=== PATIENT | male | born 1990 | race Hispanic/Latino ===

== ENCOUNTER 2021-09-20 09:40 | Inpatient (IN) | payer SELFPAY ==
[2021-09-20] MEDS ORDERED: Morphine 4 MG/ML VIAL ONE ×3 (10:00→15:08)
[2021-09-20] MEDS ORDERED: Iopamidol 370 76% 100 ML VIAL ONE (10:22)
[2021-09-20 10:44] LABS: #Eosinphils 0.2 thou/uL (0.0-0.7); #Lymphocytes 1.5 thou/uL (1.20-3.40); #Monocytes 0.4 thou/uL (0.11-0.59); #Neutrophils 6.9 thou/uL (1.40-6.50); %Basophils 0.5 % (0.0-1.0); %Eosinophils 2.3 % (0.0-10.0); %Lymphocytes 16.4 % (21.0-51.0); %Monocytes 4.6 % (0.0-10.0); %Neutrophils 76.2 % (42.0-75.0); Hemoglobin 16.6 g/dL (14.0-18.0); Mean Corpuscular HGB CONC 34.7 g/dL (32.0-36.0); Mean Corpuscular Hemoglobin 31.6 pg (27.0-31.0); Mean Platelet Volume 8.3 fL (7.4-10.4); Platelet Count 212 thou/uL (130-400); RBC Distribution Width 11.6 % (11.5-14.5); Red Blood Cell (RBC) Count 5.24 mill/uL (4.70-6.10); White Blood Cell (WBC) Count 9.1 thou/uL (4.8-10.8)
[2021-09-20 11:06] LABS: ALT (SGPT) 75 U/L (8-55); AST (SGOT) 50 U/L (5-34); Albumin 4.5 g/dL (3.5-5.0); Alkaline Phosphatase 100 U/L (40-110); Anion Gap 10 mmol/L (10-20); BUN (Urea Nitrogen) 8 mg/dL (8.9-20.6); Calc. Creatinine Clearance 0 mL/min (70-130); Calcium 9.1 mg/dL (7.8-10.44); Carbon Dioxide 24 mmol/L (22-29); Chloride 106 mmol/L (98-107); Globulin 2.9 g/dL (2.4-3.5); Glucose 95 mg/dL (70-105); Potassium 3.1 mmol/L (3.5-5.1); Protein, Total 7.4 g/dL (6.0-8.3); Sodium 137 mmol/L (136-145)
[2021-09-20] MEDS ORDERED: Boostrix 0.5 ML (Tdap) VIAL ONE (12:52)
[2021-09-20] MEDS ORDERED: Ondansetron PF 4 MG/2 ML Vial IVP PRN (14:11)
[2021-09-20] MEDS ORDERED: Dextrose 50% Abboject 50 ML SYRINGE SLOW IVP PRN (14:11)
[2021-09-20] MEDS ORDERED: Dextrose 5% in Water 1,000 ML IV PRN (14:11)
[2021-09-20] MEDS ORDERED: Morphine 4 MG/ML VIAL SLOW IVP PRN (14:11)
[2021-09-20] MEDS ORDERED: traMADol HCl 50 MG TAB PO PRN (14:14)
[2021-09-20] MEDS ORDERED: Sodium Chloride 0.9% 1,000 ML IV SCH (14:15)
[2021-09-20 14:57] LABS: Lactic Acid 1.9 mmol/L (0.5-2.2)
[2021-09-20 15:01] LABS: Alcohol Less than 10 mg/dL (Less than 10); Phosphorus 2.4 mg/dL (2.3-4.7)
[2021-09-20 15:53] LABS: SARS-CoV-2 NAA Rapid Test DETECTED (NotDetected)
[2021-09-20] MEDS ORDERED: Potassium Phosphate 30 MMOL in Sodium Chloride 0.9% 250 ML 250 ML IVPB SCH (17:30)
[2021-09-20] MEDS: Acetaminophen 500 MG TAB PO SCH ×2 (17:54→21:46)
[2021-09-20] MEDS: Gabapentin 300 MG CAP PO SCH ×2 (17:55→21:44)
[2021-09-20 19:34] VITALS: BMI 30.2
[2021-09-20] MEDS: Famotidine 20 MG TAB PO SCH (21:43)
[2021-09-20] MEDS: Ibuprofen 200 MG TAB PO SCH (21:47)
[2021-09-20] MEDS: Senokot S 8.6-50 MG TAB PO SCH (21:48)
[2021-09-21 00:53] LABS: Bacteria/HPF None Seen HPF (None Seen); Bilirubin Negative (Negative); Blood, Urine Negative (Negative); Clarity Clear (Clear); Glucose, Urine (Dipstick) Normal (Negative); Ketone, Urine Negative (Negative); Leukocyte Negative Leu/uL (Negative); Nitrite Negative (Negative); Protein, Urine (Dipstick) Negative (Neg-Trace); RBC/HPF 0-3 HPF (0-3); Specific Gravity, Urine 1.012 (1.002-1.036); Squamous Epithelial None Seen HPF (0-3); Urine Culture Reflex No No; Urobilinogen Normal mg/dL (Less than 2); WBC/HPF 0-3 HPF (0-3); pH, Urine 5.5 (5.0-9.0)
[2021-09-21 00:54] LABS: Amphetamine Not Detected (NotDetected); Barbiturates Screen Not Detected (NotDetected); Benzodiazepine Screen Not Detected (NotDetected); Cocaine Metabolite Screen Not Detected (NotDetected); Methadone Not Detected (NotDetected); Methamphetamine Not Detected (NotDetected); Opiate Screen Detected (NotDetected); Oxycodone Screen Not Detected (NotDetected); Phencyclidine (PCP) Not Detected (NotDetected); THC/Cannabinoid Screen Not Detected (NotDetected); Tricyclic Screen Not Detected (NotDetected)
[2021-09-21] MEDS: traMADol HCl 50 MG TAB PO PRN (03:40)
[2021-09-21] MEDS: Acetaminophen 500 MG TAB PO SCH ×4 (03:42→21:50)
[2021-09-21 04:44] LABS: #Eosinphils 0.2 thou/uL (0.0-0.7); #Lymphocytes 1.7 thou/uL (1.20-3.40); #Monocytes 0.6 thou/uL (0.11-0.59); #Neutrophils 4.2 thou/uL (1.40-6.50); %Basophils 0.4 % (0.0-1.0); %Eosinophils 3.6 % (0.0-10.0); %Lymphocytes 25.3 % (21.0-51.0); %Monocytes 8.4 % (0.0-10.0); %Neutrophils 62.3 % (42.0-75.0); Hemoglobin 14.8 g/dL (14.0-18.0); Mean Corpuscular HGB CONC 34.5 g/dL (32.0-36.0); Mean Corpuscular Hemoglobin 31.2 pg (27.0-31.0); Mean Corpuscular Volume 90.5 fL (78.0-98.0); Mean Platelet Volume 8.5 fL (7.4-10.4); Platelet Count 188 thou/uL (130-400); RBC Distribution Width 11.6 % (11.5-14.5); Red Blood Cell (RBC) Count 4.73 mill/uL (4.70-6.10); White Blood Cell (WBC) Count 6.7 thou/uL (4.8-10.8)
[2021-09-21 05:46] LABS: Anion Gap 10 mmol/L (10-20); BUN (Urea Nitrogen) 8 mg/dL (8.9-20.6); Calc. Creatinine Clearance 208 mL/min (70-130); Calcium 8.9 mg/dL (7.8-10.44); Carbon Dioxide 27 mmol/L (22-29); Chloride 104 mmol/L (98-107); Glucose 99 mg/dL (70-105); Magnesium 2.2 mg/dL (1.6-2.6); Phosphorus 3.5 mg/dL (2.3-4.7); Potassium 3.7 mmol/L (3.5-5.1); Sodium 137 mmol/L (136-145)
[2021-09-21] MEDS: Ibuprofen 200 MG TAB PO SCH ×3 (06:51→21:50)
[2021-09-21] MEDS: Gabapentin 300 MG CAP PO SCH ×3 (08:21→21:49)
[2021-09-21] MEDS: Senokot S 8.6-50 MG TAB PO SCH ×2 (08:21→21:51)
[2021-09-21] MEDS: Famotidine 20 MG TAB PO SCH ×2 (08:22→21:51)
[2021-09-21] MEDS ORDERED: PHOS-NAK 1 PKT PACK PO SCH (08:30)
[2021-09-21] MEDS ORDERED: Potassium Chloride 20 MEQ TAB PO SCH (08:30)
[2021-09-21] MEDS: Polyethylene Glycol 3350 17 GM Packet PO SCH (10:51)
[2021-09-21] MEDS: Cyclobenzaprine 10 MG TAB PO PRN (22:10)
[2021-09-22] MEDS: traMADol HCl 50 MG TAB PO PRN ×2 (01:32→21:57)
[2021-09-22] MEDS: Acetaminophen 500 MG TAB PO SCH ×4 (03:09→21:58)
[2021-09-22 05:17] LABS: #Eosinphils 0.6 thou/uL (0.0-0.7); #Lymphocytes 1.5 thou/uL (1.20-3.40); #Monocytes 0.4 thou/uL (0.11-0.59); #Neutrophils 4.5 thou/uL (1.40-6.50); %Basophils 0.4 % (0.0-1.0); %Eosinophils 8.4 % (0.0-10.0); %Lymphocytes 21.5 % (21.0-51.0); %Monocytes 6.2 % (0.0-10.0); %Neutrophils 63.5 % (42.0-75.0); Hemoglobin 14.8 g/dL (14.0-18.0); Mean Corpuscular HGB CONC 33.7 g/dL (32.0-36.0); Mean Corpuscular Hemoglobin 30.8 pg (27.0-31.0); Mean Corpuscular Volume 91.6 fL (78.0-98.0); Mean Platelet Volume 8.2 fL (7.4-10.4); Platelet Count 200 thou/uL (130-400); RBC Distribution Width 11.4 % (11.5-14.5); White Blood Cell (WBC) Count 7.1 thou/uL (4.8-10.8)
[2021-09-22 05:35] LABS: Anion Gap 6 mmol/L (10-20); BUN (Urea Nitrogen) 7 mg/dL (8.9-20.6); Calc. Creatinine Clearance 208 mL/min (70-130); Calcium 9.1 mg/dL (7.8-10.44); Carbon Dioxide 31 mmol/L (22-29); Chloride 105 mmol/L (98-107); Glucose 93 mg/dL (70-105); Magnesium 2.3 mg/dL (1.6-2.6); Phosphorus 2.8 mg/dL (2.3-4.7); Potassium 3.7 mmol/L (3.5-5.1); Sodium 138 mmol/L (136-145)
[2021-09-22] MEDS: Ibuprofen 200 MG TAB PO SCH ×3 (05:43→21:58)
[2021-09-22] MEDS: Famotidine 20 MG TAB PO SCH ×2 (08:13→21:57)
[2021-09-22] MEDS: Senokot S 8.6-50 MG TAB PO SCH ×2 (08:13→21:57)
[2021-09-22] MEDS: Gabapentin 300 MG CAP PO SCH ×3 (08:13→21:59)
[2021-09-22] MEDS ORDERED: PHOS-NAK 1 PKT PACK PO SCH (08:45)
[2021-09-22] MEDS: Polyethylene Glycol 3350 17 GM Packet PO SCH (10:44)
[2021-09-22] MEDS ORDERED: Enoxaparin Sodium 40 MG/0.4 ML SYRINGE SC SCH (21:00)
[2021-09-22] MEDS: Cyclobenzaprine 10 MG TAB PO PRN (21:56)
[2021-09-23] MEDS: Acetaminophen 500 MG TAB PO SCH ×3 (04:34→15:01)
[2021-09-23] MEDS: Ibuprofen 200 MG TAB PO SCH ×2 (05:20→15:01)
[2021-09-23] MEDS: Gabapentin 300 MG CAP PO SCH ×2 (09:19→15:00)
[2021-09-23] MEDS: Famotidine 20 MG TAB PO SCH (09:19)
[2021-09-23] MEDS: Polyethylene Glycol 3350 17 GM Packet PO SCH (10:43)
[2021-09-23] MEDS: Senokot S 8.6-50 MG TAB PO SCH (10:43)
[2021-09-23 15:11] VITALS: BP 133/85; TEMP 98
== END 2021-09-23 19:38 | disposition home or self-care (01) | DRG 85 ==
LOC: ERS 09:40 → SURG A 14:11
PROVIDERS: ADMIT Surgery; ATTEND Surgery
PROC: 8E0ZXY6 Isolation (ICD-10-PCS; principal; 2021-09-20)
DX: S02.831A Fracture of medial orbital wall, right side, initial encounter for closed fracture (principal); S32.491A Other specified fracture of right acetabulum, initial encounter for closed fracture; U07.1 COVID-19; S42.254A Nondisplaced fracture of greater tuberosity of right humerus, initial encounter for closed fracture; S32.391A Other fracture of right ilium, initial encounter for closed fracture; S32.591A Other specified fracture of right pubis, initial encounter for closed fracture; Z23 Encounter for immunization; S02.31XA Fracture of orbital floor, right side, initial encounter for closed fracture; S52.124A Nondisplaced fracture of head of right radius, initial encounter for closed fracture; E87.6 Hypokalemia; S52.134A Nondisplaced fracture of neck of right radius, initial encounter for closed fracture; W13.2XXA Fall from, out of or through roof, initial encounter; Y92.008 Other place in unspecified non-institutional (private) residence as the place of occurrence of the external cause
CPT/HCPCS: 29105; 36415; 70450; 70486; 71045; 71260; 72170; 74177; 80048; 80053; 80306; 80307; 81001; 83605; 83735; 84100; 85025; 86850; 86900; 86901; 90471; 90715; 96374; 96376; J1650; J2270; J7050; Q9967; U0002